=== PATIENT | female | born 1950 | race Caucasian/White ===

== ENCOUNTER 2023-12-15 22:33 | Emergency (ER) | payer MEDICARE, SELFPAY ==
--- NOTE | ~2023-12-15 | XR_ITS ---
EXAMINATION: XR ankle LT min 3V DATE: 12/15/2023 22:53 INDICATION: Left ankle injury. TECHNIQUE: 4 views of left ankle were obtained. COMPARISON: None. FINDINGS: Alignment is normal. No fracture. Joint spaces are normal. IMPRESSION: 1. No fracture. Reviewed, dictated and finalized at location A. IMPRESSION: 1. No fracture.
--- NOTE | ~2023-12-15 | XR_ITS ---
EXAMINATION: XR foot LT 2V DATE: 12/15/2023 22:53 INDICATION: Left foot injury and pain. TECHNIQUE: 2 views of left foot were obtained. COMPARISON: None. FINDINGS: There is mild hallux valgus. No fracture. Joint spaces are normal. IMPRESSION: 1. Mild hallux valgus. Reviewed, dictated and finalized at location A. IMPRESSION: 1. Mild hallux valgus.
[2023-12-15 22:38] VITALS: BP 141/76; PULSE 83; RESP 16; TEMP 36.4; O2SAT 100
--- NOTE | 2023-12-15 23:50 | ED.GENADULT ---
HPI - General Adult General Chief complaint: Extremity Injury, Lower Stated complaint: left lateral foot pain Time Seen by Provider: 12/15/23 23:37 Source: patient Mode of arrival: ambulatory Limitations: no limitations History of Present Illness HPI narrative: This is a 73-year-old female who presents to the ED for chief complaint of a fall. Reports that she fell onto the metal bar of the bottom of the dog's gait and this caused her to twist her ankle. She complains of left lateral foot pain. Denies any further injury. Denies numbness or weakness. Related Data Allergies Allergy/AdvReac Type Severity Reaction Status Date / Time meperidine [From Demerol] Allergy Anaphylaxis Verified 12/15/23 22:35 Review of Systems Review of Systems: All systems as dictated in HPI Exam Narrative: GENERAL: Well-appearing, well-nourished, and in no acute distress. HEAD: Normocephalic, atraumatic. MSK: LLE: Mild tenderness to the left 5th metatarsal distally. No bruising. No deformity. Full range of motion of the ankle RLE: Benign SKIN: Warm, dry, no rash. NEURO: Alert and oriented x4. No focal deficits. PSYCH: Normal mood and affect. Course Vital Signs Vital signs: Vital Signs Temperature 97.6 F 12/15/23 22:38 Pulse Rate 83 12/15/23 22:38 Respiratory Rate 16 12/15/23 22:38 Blood Pressure 141/76 H 12/15/23 22:38 Pulse Oximetry 100 12/15/23 22:38 Oxygen Delivery Room Air 12/15/23 22:38 Temperature 97.6 F 12/15/23 22:38 Pulse Rate 83 12/15/23 22:38 Respiratory Rate 16 12/15/23 22:38 Blood Pressure 141/76 H 12/15/23 22:38 Pulse Oximetry 100 12/15/23 22:38 Oxygen Delivery Room Air 12/15/23 22:38 Medical Decision Making [facility] Narrative Medical decision making narrative: This is a 73-year-old female who presents to the ED for chief complaint of left foot injury that occurred just prior to arrival. Vitals are normal. Exam shows mild tenderness to left 5th metatarsal. No deformity. X-rays are negative for fracture. Presentation consistent with straight. Crutches given for assistance with ambulation. Pt will be discharged in stable condition. Return precautions given and supportive measures discussed. Pt is understanding and agreeable with plan for discharge and follow-up with PCP. Vital Signs Vital Signs: Vital Signs Temperature 97.6 F 12/15/23 22:38 Pulse Rate 83 12/15/23 22:38 Respiratory Rate 16 12/15/23 22:38 Blood Pressure 141/76 H 12/15/23 22:38 Pulse Oximetry 100 12/15/23 22:38 Oxygen Delivery Room Air 12/15/23 22:38 Temperature 97.6 F 12/15/23 22:38 Pulse Rate 83 12/15/23 22:38 Respiratory Rate 16 12/15/23 22:38 Blood Pressure 141/76 H 12/15/23 22:38 Pulse Oximetry 100 12/15/23 22:38 Oxygen Delivery Room Air 12/15/23 22:38 Discharge Plan Discharge Clinical Impression: Sprain of foot, left Patient Disposition: Home, Self-Care Condition: Stable Instructions: Antibiotic Form Additional Instructions: Your exam and imaging today are reassuring. No evidence of any fracture. This is probably a sprain. Progress from nonweightbearing to weight-bearing over the course of the next week with the aid of crutches. Use ibuprofen and Tylenol regularly for pain control. Follow-up with PCP on this issue. If you have any new or worsening symptoms please return to the ER for further evaluation. Follow-up/Referrals: PHYSICIAN NOT ON STAFF,NONSTAFF [Non-Staff] - Time of Disposition: 23:57
[2023-12-16 00:08] VITALS: BP 136/78; PULSE 77; RESP 16; O2SAT 98
== END 2023-12-16 00:11 | disposition home or self-care (01) ==
PROVIDERS: Emergency Provider Physician Assistant; PCP Internal Medicine Infectious Disease
DX: S93.602A Unspecified sprain of left foot, initial encounter (principal); W01.198A Fall on same level from slipping, tripping and stumbling with subsequent striking against other object, initial encounter; X50.9XXA Other and unspecified overexertion or strenuous movements or postures, initial encounter
CPT/HCPCS: 73610; 73620; 99283